=== PATIENT | female | born 1995 | race Caucasian/White ===

== ENCOUNTER 2017-11-15 01:10 | Outpatient (CLI) | payer MEDICAID | END 2017-11-15 02:11 | disposition home or self-care (01) | LOC: D.LDO 01:10 | DX: O26.899 Other specified pregnancy related conditions, unspecified trimester (principal); Z3A.00 Weeks of gestation of pregnancy not specified ==

== ENCOUNTER 2018-03-01 22:44 | Outpatient (CLI) | payer MEDICAID ==
[2018-03-01 22:59] LABS: APPEARANCE CLEAR (CLEAR); BILIRUBIN NEGATIVE (NEGATIVE); COLOR YELLOW (YELLOW); GLUCOSE NEGATIVE (NEGATIVE); KETONE NEGATIVE (NEGATIVE); NITRITE NEGATIVE (NEGATIVE); PROTEIN NEGATIVE (NEGATIVE); SPECIFIC GRAVITY 1.005 (1.005-1.020); UROBILINOGEN NORMAL (NORMAL)
[2018-03-10 10:23] VITALS: BMI 31.2
== END 2018-03-02 00:05 | disposition home or self-care, planned readmission (81) ==
LOC: D.LDO 22:44 → D.LD 22:49 → D.LDO 03-02 00:05
PROVIDERS: Obstetrics & Gynecology
DX: O26.893 Other specified pregnancy related conditions, third trimester (principal); Z3A.37 37 weeks gestation of pregnancy

== ENCOUNTER 2018-03-09 22:44 | Outpatient (CLI) | payer MEDICAID ==
[2018-03-10 10:23] VITALS: BMI 31.2
== END 2018-03-09 23:27 | disposition home or self-care (01) ==
LOC: D.LDO 22:44
DX: O26.853 Spotting complicating pregnancy, third trimester (principal); Z3A.38 38 weeks gestation of pregnancy

== ENCOUNTER 2018-03-10 05:34 | Inpatient (IN) | payer MEDICAID ==
[~2018-03-10] VITALS: Ht 167.6 cm; Wt 87.5 kg
--- NOTE | ~2018-03-10 | DS ---
PATIENT:MAYCOL BAEZ :89 MEDICAL RECORD: [id number] DISCHARGE SUMMARY ADMISSION DATE: 03/10/18 DISCHARGE DATE: DATE OF ADMISSION: 03/10/2018 DATE OF DISCHARGE: 03/12/2018 ADMISSION DIAGNOSIS: Term in active labor. DISCHARGE DIAGNOSIS: Mother delivered at term. PROCEDURE: Vaginal delivery. ATTENDING: Jing Saavedra MD HISTORY OF PRESENT ILLNESS: See the H&P in the chart. SUMMARY OF HOSPITALIZATION: The patient presented to labor and delivery with active contractions and subsequent rupture. The patient went on to deliver vaginally without incident. At the time of discharge, she is doing well with [id number] lochia and adequate pain control on ibuprofen and Tylenol. The patient will be discharged home after contraception counseling. She will follow up in 6 weeks and has been given the standard precautions. TRANSINT:[id number] Voice Confirmation ID: [id number] DOCUMENT ID: [id number] JING SAAVEDRA MD at 1458 CC: [id number] DICTATION DATE: 03/12/18 1239 MEDICAL LANGUAGE SPECIALIST: 03/12/18 1337 ADM IN [facility] [address] [place] [address]
--- NOTE | ~2018-03-10 | OP ---
PATIENT NAME: MAYCOL BAEZ MEDICAL RECORD: [id number] :89 LOCATION:[id number] ADMISSION DATE:03/10/18 SURGEON: JOE SAAVEDRA MD DATE OF OPERATION: 03/10/2018 DELIVERY NOTE PREDELIVERY DIAGNOSIS: Active labor at term. POSTDELIVERY DIAGNOSIS: Mother delivered at term. PROCEDURE: Vaginal delivery. ATTENDING: Joe Saavedra MD ANESTHESIOLOGIST: Chad Osman MD ANESTHETIC: Continuous lumbar epidural. FINDINGS: Viable male , SOM presentation, Apgars 9 and 9, weight 7 pounds 6 ounces. Midline episiotomy cut with 3-0 chromic repair. First-degree laceration of the right vaginal wall, repaired with 3-0 chromic. Placenta spontaneous and intact. ESTIMATED BLOOD LOSS: 300 cc. DISPOSITION: Mother and infant recovered in the room. TRANSINT:[id number] Voice Confirmation ID: [id number] DOCUMENT ID: [id number] JOE SAAVEDRA MD at 0959 CC: [id number] DICTATION DATE: 03/10/181755 BANKING ANALYST: 03/10/18 1847 ADM IN [facility] [address] [place] [address]
[2018-03-10 09:31] LABS: HEMATOCRIT 34.3 % (36.0-48.0); HEMOGLOBIN 11.5 g/dL (12-16); MCH 27.7 pg (26.0-34.0); MCHC 33.5 g/dL (31.0-37.0); MCV 82.7 fL (80.0-100.0); MEAN PLATELET VOLUME 10.1 fL (7.4-10.4); RBC 4.15 10x6/uL (4.00-5.40); RDW 13.8 % (11.5-14.5)
[2018-03-10 10:23] VITALS: BP 110/59; Ht 167.6 cm; Wt 87.5 kg
[2018-03-10 21:30] VITALS: BP 151/82
[2018-03-11 06:15] LABS: RAPID PLASMA REAGIN Non Reactive (Non Reactive)
[2018-03-11 07:12] LABS: HEMATOCRIT 29.6 % (36.0-48.0); HEMOGLOBIN 9.8 g/dL (12-16); MCH 27.5 pg (26.0-34.0); MCHC 33.1 g/dL (31.0-37.0); MCV 83.1 fL (80.0-100.0); MEAN PLATELET VOLUME 10.1 fL (7.4-10.4); RBC 3.56 10x6/uL (4.00-5.40); RDW 14.2 % (11.5-14.5); WBC 30.3 10x3/uL (4.8-10.8)
[2018-03-11 07:30] VITALS: BP 114/51
[2018-03-11 12:19] VITALS: BP 123/72
[2018-03-11 20:45] VITALS: BP 115/61
[2018-03-12 11:22] VITALS: BP 110/62
== END 2018-03-12 17:10 | disposition home or self-care (01) | DRG 775 ==
LOC: D.LDO 05:34 → D.WS 08:34 → D.LD 08:34 → D.WS 21:40
PROVIDERS: Obstetrics & Gynecology
PROC: 10E0XZZ Delivery of Products of Conception, External Approach (ICD-10-PCS; principal; 2018-03-10)
PROC: 0W8NXZZ Division of Female Perineum, External Approach (ICD-10-PCS; 2018-03-10)
DX: O99.334 Smoking (tobacco) complicating childbirth (principal); O70.0 First degree perineal laceration during delivery; Z37.0 Single live birth; Z3A.39 39 weeks gestation of pregnancy